=== PATIENT | female | born 2000 | race Caucasian/White ===

== ENCOUNTER → 2021-03-12 | Outpatient (REF) | payer OTHER ==
[~2021-03-12] MED LIST: IBUP80TA PO; PERCOCET PO; PRENTAB9 PO
== END ==
LOC: M SFHCWAGY 17:39
PROVIDERS: ATTEND Advanced Practice Midwife
DX: Z34.83 Encounter for supervision of other normal pregnancy, third trimester (principal); Z3A.36 36 weeks gestation of pregnancy
CPT/HCPCS: 87081; G0463

== ENCOUNTER 2021-03-25 11:31 | Inpatient (IN) | payer OTHER ==
[2021-03-25] VITALS (13 sets, daily range): BP systolic 118–165; BP diastolic 59–85
[~2021-03-25] VITALS: Ht 152.4 cm; Wt 70.1 kg
[2021-03-25] MEDS ORDERED: PRENTAB9 PO (11:49)
[2021-03-25] MEDS ORDERED: TRANEXAMIC ACID INJection 1,000 MG in NS 100 ML IV PRN (12:20)
[2021-03-25] MEDS ORDERED: CARBOPROST TROMETHAMINE 250 MCG/ML AMP IM PRN (12:20)
[2021-03-25] MEDS ORDERED: OXYTOCIN INJ 10 UNITS/ML VIAL (J2590) IM PRN (12:20)
[2021-03-25] MEDS ORDERED: LIDOCAINE 1% MDV 20ML VIAL INFIL PRN (12:20)
[2021-03-25] MEDS ORDERED: OXYTOCIN DRIP 30 UNITS in IV 1 EA IV PRN ×4 (12:20)
[2021-03-25 12:51] LABS: HEMATOCRIT 36.1 % (36.0-47.0); HEMOGLOBIN 12.2 g/dl (12.0-15.5); MEAN CORPUSCULAR HEMOGLOBIN 30.9 pg (27.0-33.0); MEAN CORPUSCULAR HGB CONC 33.8 g/dl (32.0-36.5); MEAN CORPUSCULAR VOLUME 91.4 fl (80.0-96.0); PLATELET COUNT, AUTOMATED 183 10^3/uL (150-450); RED BLOOD COUNT 3.95 10^6/uL (4.00-5.40); WHITE BLOOD COUNT 9.2 10^3/uL (4.0-10.0)
[2021-03-25] MEDS ORDERED: HOME MED LIST COMPLETE! XX SCH (12:55)
[2021-03-25 13:16] LABS: ALT/SGPT 16 U/L (12-78); BILIRUBIN,TOTAL 0.3 MG/DL (0.2-1.0); CREATININE FOR GFR 0.63 MG/DL (0.55-1.30); GLOMERULAR FILTRATION RATE > 60.0 (>60); LDH LACTATE DEHYDROGENASE 162 U/L (84-246); URIC ACID 4.8 MG/DL (2.6-6.0)
--- NOTE | 2021-03-25 13:38 | HPE ---
HISTORY AND PHYSICAL DATE OF ADMISSION: 03/25/2021 HISTORY OF PRESENT ILLNESS: Katrin is a 21-year-old 1 para 0 at 38 weeks gestation with an EDC of 04/08/2021 based on first trimester ultrasound. She presents to Labor and Delivery today with a report of spontaneous rupture of membranes approximately 10:00 a.m. She reports continued leakage of fluid. Fluid is clear. She denies bloody show. Reports some occasional cramping, and the fetus has been active. She does deny headache, visual disturbances, epigastric pain, and right upper quadrant discomfort. [place] with a transfer of care to [facility] at 29 weeks gestation. Her course has been uncomplicated. OBSTETRIC HISTORY: Primigravida. OBSTETRIC LABS: B positive. Antibody screen negative. VDRL negative. Hepatitis B surface antigen negative. Hepatitis C antibody negative. HIV negative. Gonorrhea and chlamydia negative. Rubella nonimmune. Urine culture no growth. There is no gestational diabetic for review. She does report she had the labs performed and reports that they are normal. However, there was no actual lab for review upon transfer. Her GBS is negative. PAST MEDICAL HISTORY: Asthma. FAMILY HISTORY: Noncontributory. PAST SURGICAL HISTORY: She had hand/finger surgery as well as wisdom tooth extraction. SOCIAL HISTORY: The patient is . She is a nonsmoker. She denies alcohol and drug use. No history of sexually transmitted infections, and she denies history of abuse, physical, sexual, and emotional. ALLERGIES: No known drug allergies. However, she does report an allergy to shellfish which causes a full body rash and itching. CURRENT MEDICATIONS: vitamin. PHYSICAL EXAMINATION: 99.6, pulse 83, respiration 18, blood pressure upon arrival elevated at 165/85, 140/81, and 162/77. She does appear anxious. heart rate is 150 with moderate variability, positive accelerations, negative decelerations. She is jarvis every 2 to 6 minutes. They do palpate mild. Her abdomen is gravid, cephalic presentation with an estimated weight of 6-1/2 to 7 pounds. Sterile speculum exam: Grossly ruptured, clear fluid, positive Nitrazine, positive fern. Sterile vaginal exam: 3-4 cm dilated, 80% effaced, -1 station, mid position. Normal show with the exam. ASSESSMENT: Intrauterine at 38 weeks gestation, heart rate category 1, premature rupture of membranes, latent labor, potential gestational hypertension and/or preeclampsia. PLAN: Admit the patient to Labor and Delivery, out of bed ad.[email or web address] m., saline lock for IV access, routine laboratories with the addition of a preeclamptic profile and a spot urine. I will await active labor. If no labor is initiated, then will induce with IV Pitocin. The patient is currently wanting to cope with her labor physiologically. She may consider an epidural. She has been verbally consented for emergency surgery and blood products if they are necessary. I do anticipate labor and a vaginal delivery.
[2021-03-25 14:17] LABS: CREATININE,RANDOM URINE 56.6 MG/DL; TOTAL PROTEIN,RANDOM URINE 13.9 MG/DL (0.0-12.0)
[2021-03-25] MEDS ORDERED: LR 1,000 ML IV SCH (16:15)
[2021-03-25] MEDS ORDERED: OXYTOCIN DRIP 30 UNITS in IV 1 EA IV SCH (16:15)
[2021-03-25] MEDS ORDERED: FENTANYL 2MCG/ML ROPIVACAINE 0.2% IN 0.9% NACL 100ML IVBAG As Ordered ONE (20:17)
[2021-03-25] MEDS ORDERED: ePHEDrine SULFATE 25 MG/5 ML(5MG/ML) SYRINGE IV PRN (20:55)
[2021-03-25] MEDS ORDERED: EPIDURAL COMMENT XX SCH (20:55)
[2021-03-25] MEDS ORDERED: LACTATED RINGER'S 1000 ML IV PRN (20:55)
[2021-03-25] MEDS ORDERED: REFRIGERATOR IV KEYS XX PRN (20:55)
[2021-03-25] MEDS ORDERED: NALOXONE INJ 0.4MG/1ML VIAL (J2310 PER 1MG) IV PRN (20:55)
[2021-03-25] MEDS ORDERED: EPIDURAL/PCA KEYS XX PRN (20:55)
[2021-03-25] MEDS ORDERED: ONDANSETRON 4MG/2ML VIAL IV PRN (20:55)
[2021-03-25] MEDS ORDERED: FENTANYL/ROPIVACAINE/NACL BAG 100 ML EPIDURAL SCH (20:55)
[2021-03-25] MEDS ORDERED: diphenhydrAMINE 50MG/ML VIAL (J1200) IV PRN (20:55)
[2021-03-26] VITALS (24 sets, daily range): BP systolic 112–146; BP diastolic 59–88
[2021-03-26] MEDS: LACTATED RINGER'S 1000 ML IV STA (06:05)
[2021-03-26] MEDS ORDERED: BICITRA 30ML SOLN UDC PO ONE (06:05)
[2021-03-26] MEDS ORDERED: ceFAZolin SOD 2 GM in IV 1 EA IV ONE (06:05)
[2021-03-26] MEDS ORDERED: ceFAZolin SOD 3 GM IV Place Holder IV ONE (06:05)
[2021-03-26] MEDS ORDERED: OXYTOCIN 30 UNITS IN 0.9% NaCl 500ML IV BAG (J2590) As Ordered ONE (06:56)
[2021-03-26] MEDS ORDERED: KETOROLAC 60MG 2ML VIAL As Ordered ONE (06:56)
[2021-03-26] MEDS ORDERED: MORPHINE PRES-FREE INJ 10 MG/10 ML VIAL (J2274) As Ordered ONE (06:56)
[2021-03-26] MEDS ORDERED: fentaNYL 100 MCG/2 ML INJECTION (J3010) As Ordered ONE (06:56)
[2021-03-26] MEDS ORDERED: ONDANSETRON 4MG/2ML VIAL As Ordered ONE (06:56)
[2021-03-26] MEDS ORDERED: MIDAZOLAM INJ 2MG/2ML VIAL (J2250 PER 1MG) As Ordered ONE (06:56)
[2021-03-26] MEDS ORDERED: SODIUM BICARBONATE 8.4% INJ 50MEQ 50 ML VIAL As Ordered ONE (06:56)
[2021-03-26] MEDS ORDERED: LIDOCAINE 2% W/EPINEPHRINE 20ML VIAL **PRES FREE As Ordered ONE (06:56)
[2021-03-26] MEDS ORDERED: propofoL 200 MG/20 ML VIAL As Ordered ONE (06:56)
[2021-03-26] MEDS ORDERED: dexameTHASONE 4 MG/ML 1ML VIAL (J1100 PER 1MG) As Ordered ONE (06:56)
[2021-03-26] MEDS ORDERED: SUCCINYLCHOLINE 100 MG/5 ML SYRINGE (J0330) As Ordered ONE (06:59)
[2021-03-26 07:07] LABS: CORD GAS ABE A -5.4; CORD GAS ABE V -6.9; CORD GAS HCO3 A 20.7 MEQ/L; CORD GAS HCO3 V 19.7 MEQ/L; CORD GAS O2 SAT A 85.4 %; CORD GAS O2 SAT V 79.3 %; CORD GAS PCO2 A 42.1 mmHg; CORD GAS PH A 7.309 UNITS; CORD GAS PH V 7.278 UNITS; CORD GAS PO2 A 43.8 mmHg; CORD GAS PO2 V 39.2 mmHg; CORD GAS SBC A 19.8 MEQ/L; CORD GAS SBC V 18.5 MEQ/L
[2021-03-26] MEDS ORDERED: ACETAMINOPHEN 1000MG 100ML IV BTL (OFIRMEV) (J0131 PER 10MG) As Ordered ONE (07:24)
[2021-03-26] MEDS ORDERED: RHOGAM 300 MCG (1500 IU) INJ (J2790) IM SCH (07:25)
[2021-03-26] MEDS ORDERED: ONDANSETRON 4MG/2ML VIAL IV PRN ×2 (07:25→07:50)
[2021-03-26] MEDS ORDERED: SIMETHICONE 80MG CHEW TAB PO PRN (07:25)
[2021-03-26] MEDS ORDERED: MEASLES,MUMPS,RUBELLA VACCINE INJ (MMR-II) (90707) SC SCH (07:25)
[2021-03-26] MEDS ORDERED: PERCOCET 5MG/325MG TAB PO PRN ×2 (07:25)
[2021-03-26] MEDS ORDERED: LR 1,000 ML IV SCH (07:25)
[2021-03-26] MEDS ORDERED: OXYTOCIN DRIP 30 UNITS in IV 1 EA IV SCH (07:25)
--- NOTE | 2021-03-26 07:31 | ROOPDOC ---
[facility] Report Of Operation Report of Operation DATE OF PROCEDURE: 03/26/21 Report of operation Preoperative diagnosis:38 weeks labor, arrest of descent Postoperative diagnosis:same Procedure: Primary low transverse section. Surgeon: Ирниа Holcomb M.D. Asst.: Blake Andrew CNM EBL: 500 ml. Urine output: 100 mL's. Findings: 6 lbs. 0 oz. female , 's 9 and 9 g, occiput posterior, normal uterus, fallopian tubes, ovaries. Operative summary: Patient taken to the operative room where spinal anesthesia induced. She was prepped and draped in a sterile fashion in the supine position. A Lorenzo catheter was placed. A Pfannenstiel skin incision was made with scalpel. Fascia was incised and extended bilaterally. The peritoneal cavity was entered. A Mobius retractor was placed. A bladder flap was created. A curvilinear incision was made in lower uterine segment until Clear fluid was noted. The incision was extended manually. The was delivered from the vertex pos ition without difficulty. Cord was doubly clamped and cut. The was handed to the awaiting nurses. The placenta was expressed. Uterus was closed with O- Vicryl in a running locked fashion. A second imbricating layer of Vicryl was placed. Peritoneum was closed with 2-0 Vicryl a running fashion. Fascia was closed with 0 Vicryl in running fashion. Skin was closed 4-0 Monocryl subcuticular sutures. Sponge, instrument and needle counts were correct. Blake Andrew CNM, assisted with all aspects of the procedure. She helped each layer of the incision and deliver the fetus. ИРИНА HOLCOMB MD Mar 26, 2021 07:31
[2021-03-26] MEDS ORDERED: oxyCODONE 5MG TAB PO PRN (07:50)
[2021-03-26] MEDS ORDERED: fentaNYL 100 MCG/2 ML INJECTION (J3010) IV PRN (07:50)
[2021-03-26] MEDS: PRENATAL VITAMINS CHEWABLE TABLET PO SCH (09:00)
[2021-03-26] MEDS: KETOROLAC 30 MG/ML 1ML VIAL IV SCH ×2 (13:00→18:25)
[2021-03-26] MEDS ORDERED: LR 500 ML IV ONE (21:00)
[2021-03-27] MEDS: KETOROLAC 30 MG/ML 1ML VIAL IV SCH (01:18)
[2021-03-27 02:00] VITALS: BP 138/93
[2021-03-27 06:00] VITALS: BP 124/60
--- NOTE | 2021-03-27 06:07 | IPNPDOC ---
Progress Note Date of Service: Mar 27, 2021 Progress Note SUBJECT: Status post PLTCS for arrest of descent. She has been ambulating, voiding spontaneously without issue and tolerating regular diet. Lochia decreasing/minimal. Pain is well-controlled. Incision bandage is clean/unsaturated. Denies headache, visual changes, right upper quadrant pain, shortness of breath or chest pain. OBJECTIVE: VITAL SIGNS: Within normal limits, afebrile. Alert and oriented times three. Abdomen: Fundus firm at U-2. Soft, NTTP. Incision bandage not soaked through ASSESSMENT: Status post uncomplicated LTCS. Vitals within normal limits, afebrile, hemodynamically stable with no evidence of infection. PLAN: Discharge to home tomorrow Routine /postoperative advancement Postoperative instructions/precautions reviewed. Routine PP visit at 2 and 6 weeks in clinic. VS, I&O, 24H, Fishbone Vital Signs/I&O Vital Signs Date Time Temp Pulse Resp B/P (MAP) Pulse Ox O2 Delivery O2 Flow Rate FiO2 03/27/21 02:00 97.9 98 16 138/93 (108) 98 Room Air I&O- Last 24 Hours up to 6 AM 03/27/21 06:00 Intake Total 3400 ml Output Total 1150 ml Balance 2250 ml Laboratory Data 24H LABS Laboratory Tests 2 03/26/21 06:45: Cord Arterial Blood pH 7.309, Cord Arterial Blood PCO2 42.1, Cord Arterial Blood PO2 43.8, Cord Arterial Blood HCO3 20.7, Cord Arterial Blood Total CO2 22.0, Cord Arterial Blood Base Excess -5.4, Cord Arterial Base Excess (Standard 19.8, Cord Arterial Bld Oxygen Saturation 85.4, Cord Venous Blood pH 7.278, Cord Venous Blood PCO2 43.0, Cord Venous Blood PO2 39.2, Cord Venous Blood HCO3 19.7, Cord Venous Blood Total CO2 21.0, Cord Venous Base Excess (Actual) -6.9, Cord Ve nous Base Excess (Standard) 18.5, Cord Venous Blood Oxygen Saturation 79.3 MABEL LYNN DO Mar 27, 2021 06:07
[2021-03-27 08:14] LABS: HEMATOCRIT 27.3 % (36.0-47.0); MEAN CORPUSCULAR HGB CONC 33.3 g/dl (32.0-36.5); MEAN CORPUSCULAR VOLUME 92.9 fl (80.0-96.0); PLATELET COUNT, AUTOMATED 125 10^3/uL (150-450); RED BLOOD COUNT 2.94 10^6/uL (4.00-5.40); WHITE BLOOD COUNT 12.8 10^3/uL (4.0-10.0)
[2021-03-27 08:20] LABS: HEMOGLOBIN 9.1 g/dl (12.0-15.5)
[2021-03-27] MEDS: PRENATAL VITAMINS CHEWABLE TABLET PO SCH (09:02)
[2021-03-27] MEDS: IBUPROFEN 800 MG TAB PO SCH ×2 (09:02→17:25)
[2021-03-27 14:00] VITALS: BP 119/66
[2021-03-27 18:00] VITALS: BP 112/74
[2021-03-27 22:00] VITALS: BP 136/95
[2021-03-27] MEDS ORDERED: DOCUSATE SODIUM 100MG CAPSULE PO PRN (22:55)
[2021-03-27] MEDS ORDERED: MOM 30ML SUSPENSION UDC PO PRN (22:55)
[2021-03-28 02:00] VITALS: BP 139/75
[2021-03-28 06:13] VITALS: BP 159/98
[2021-03-28 06:25] VITALS: BP 140/84
--- NOTE | 2021-03-28 08:12 | IPNPDOC ---
Text Note Date of Service The patient was seen on 03/28/21. NOTE PO #2 Feels well. Weepy "can't feed my baby" Voiding, passing flatus VSS, afebrile, normoensive Breasts soft Fundus firm NT Dressing intact Lochia rubra light without odor PO #2 Reviewed pt decision to breast feed vs formula is hers, She can choose to do ei ther if she wishes If , enc her to ask nurse for assist every feeding, to put baby to breast first before giving bottle. Routine care and support. Anticipate D/C in am VS,Fishbone, I+O VS, Fishbone, I+O Vital Signs Date Time Temp Pulse Resp B/P (MAP) Pulse Ox O2 Delivery O2 Flow Rate FiO2 03/28/21 06:25 140/84 (102) 03/28/21 06:13 98.1 75 14 100 Room Air Jocy Blood CNM Mar 28, 2021 08:12
[2021-03-28] MEDS: LACTATED RINGER'S 1000 ML IV STA (09:08)
[2021-03-28] MEDS: PRENATAL VITAMINS CHEWABLE TABLET PO SCH (09:09)
[2021-03-28] MEDS: IBUPROFEN 800 MG TAB PO SCH ×2 (09:09→17:36)
[2021-03-28] MEDS ORDERED: IBUP80TA PO (10:54)
[2021-03-28] MEDS ORDERED: PERCOCET PO (10:54)
--- NOTE | 2021-03-28 10:56 | DS.PDOC ---
Discharge Summary General Date of Admission Mar 25, 2021 at 12:15 Discharge Summary PROCEDURES PERFORMED DURING STAY: [None]. ADMITTING DIAGNOSES: 1. . DISCHARGE DIAGNOSES: 1. . COMPLICATIONS/CHIEF COMPLAINT: LABOR. HISTORY OF PRESENT ILLNESS: . HOSPITAL COURSE: . DISCHARGE MEDICATIONS: Please see below. ALLERGIES: Please see below. PHYSICAL EXAMINATION ON DISCHARGE: VITAL SIGNS: Please see below. GENERAL: HEENT: NECK: CARDIOVASCULAR EXAMINATION: RESPIRATORY EXAMINATION: ABDOMINAL EXAMINATION: EXTREMITIES: SKIN: NEUROLOGICAL EXAMINATION: PSYCHIATRIC EXAMINATION: LABORATORY DATA: Please see below. IMAGING: PROGNOSIS: ACTIVITY: [As tolerated]. DIET: DISCHARGE PLAN: DISPOSITION: . DISCHARGE INSTRUCTIONS: 1. . ITEMS TO FOLLOWUP ON ON OUTPATIENT: 1. . DISCHARGE CONDITION: [Stable]. TIME SPENT ON DISCHARGE: minutes. Vital Signs/I&Os Vital Signs Date Time Temp Pulse Resp B/P (MAP) Pulse Ox O2 Delivery O2 Flow Rate FiO2 03/28/21 06:25 140/84 (102) 03/28/21 06:13 98.1 75 14 100 Room Air Discharge Medications Scheduled Ibuprofen (Ibuprofen) 800 Mg Tablet, 800 MG PO Q8H No.137/Iron/Folic Acd ( Vitamin Tablet) 1 Each Tablet, 1 TAB PO DAILY, (Reported) Scheduled PRN Oxycodone/Acetaminophen (Oxycodone-Acetaminophen 5-325) 1 Each Tablet, 1 TAB PO Q4H PRN for MODERATE PAIN (PS 5-7) Allergies Coded Allergies: shellfish derived (Verified Allergy, Mild, rash, 03/25/21) ELSY JEFFERY MD. Mar 28, 2021 10:56
[2021-03-28 18:00] VITALS: BP 144/89
[2021-03-29] MEDS: IBUPROFEN 800 MG TAB PO SCH ×2 (00:34→08:47)
[2021-03-29 05:49] VITALS: BP 132/82
[2021-03-29] MEDS: PRENATAL VITAMINS CHEWABLE TABLET PO SCH (08:47)
== END 2021-03-29 12:10 | disposition home or self-care (01) | DRG 773 ==
LOC: M LDO 11:31 → M LDI 12:15 → M OBS 03-26 08:58
PROVIDERS: ADMIT Advanced Practice Midwife; ATTEND Specialist
PROC: 10D00Z1 Extraction of Products of Conception, Low, Open Approach (ICD-10-PCS; principal; 2021-03-26 07:37)
DX: O42.02 Full-term premature rupture of membranes, onset of labor within 24 hours of rupture (principal); Z3A.38 38 weeks gestation of pregnancy; O64.0XX0 Obstructed labor due to incomplete rotation of fetal head, not applicable or unspecified; Z37.0 Single live birth

== ENCOUNTER → 2023-01-17 | Outpatient (REF) | payer OTHER | LOC: M SFHCWAGY 16:53 | PROVIDERS: ATTEND Nurse Practitioner Family | DX: N73.9 Female pelvic inflammatory disease, unspecified (principal) | CPT/HCPCS: 87491; 87591; 87661; 87798; G0123; G0463 ==

== ENCOUNTER → 2023-02-08 | Outpatient (CLI) | payer OTHER ==
[2023-02-08 14:46] LABS: HCG, SERUM QUALITATIVE NEGATIVE (NEGATIVE)
[2023-02-08 14:49] LABS: FREE T4 1.06 NG/DL (0.89-1.76)
[2023-02-08 14:50] LABS: PROLACTIN 5.03 NG/ML; THYROID STIMULATING HORMONE 2.408 uIU/ML (0.55-4.78)
[2023-02-08 15:35] LABS: HEMOGLOBIN A1c 4.8 % (4.0-6.0)
[2023-02-11 04:10] LABS: 17 HYDROXY PROGESTERONE 18 ng/dL (.); TESTOSTERONE FREE (DIRECT) 4.1 pg/mL (0.0-4.2)
== END ==
LOC: M PLALAB 10:23
PROVIDERS: ATTEND Nurse Practitioner Family
DX: N91.2 Amenorrhea, unspecified (principal); Z12.4 Encounter for screening for malignant neoplasm of cervix; N76.0 Acute vaginitis; Z77.9 Other contact with and (suspected) exposures hazardous to health; R87.615 Unsatisfactory cytologic smear of cervix
CPT/HCPCS: 36415; 82627; 83036; 83498; 84146; 84402; 84403; 84439; 84443; 84703; 87070; G0123; G0463

== ENCOUNTER → 2023-02-16 | Outpatient (CLI) | payer OTHER | LOC: M WHC 07:36 | PROVIDERS: ATTEND Nurse Practitioner Family | DX: N91.2 Amenorrhea, unspecified (principal) ==

== ENCOUNTER → 2023-03-24 | Outpatient (REF) | payer OTHER ==
[2023-03-24 10:49] LABS: ALBUMIN 3.7 G/DL (3.2-5.2); ALKALINE PHOSPHATASE 61 U/L (46-116); ALT/SGPT 22 U/L (7.0-40); AST/SGOT 13 U/L (<34); BILIRUBIN,TOTAL 0.5 MG/DL (0.3-1.2); BLOOD UREA NITROGEN 14 MG/DL (9-23); CALCIUM LEVEL 9.5 MG/DL (8.5-10.1); CARBON DIOXIDE LEVEL 28 MMOL/L (20-31); CHLORIDE LEVEL 106 MMOL/L (98-107); CREATININE FOR GFR 0.72 MG/DL (0.55-1.30); GLOMERULAR FILTRATION RATE > 60.0 (>60); GLUCOSE, FASTING 80 MG/DL (60-100); POTASSIUM SERUM 4.3 MMOL/L (3.5-5.1); SODIUM LEVEL 139 MMOL/L (136-145); TOTAL PROTEIN 7.3 G/DL (5.7-8.2)
[2023-03-24 10:50] LABS: ESTRADIOL 61.9 PG/ML; HCG, SERUM QUALITATIVE NEGATIVE (NEGATIVE)
[2023-03-24 10:51] LABS: FOLLICLE STIMULATING HORMONE 10.9 mIU/ML; LUTEINIZING HORMONE 10.9 mIU/ML; PROGESTERONE 0.49 NG/ML
== END ==
LOC: M SFHCWAGY 09:51
PROVIDERS: ATTEND Nurse Practitioner Family
DX: N91.2 Amenorrhea, unspecified (principal)
CPT/HCPCS: 80053; 82670; 83001; 83002; 84144; 84703; G0463

== ENCOUNTER 2024-02-09 17:29 | Emergency (ER) | payer OTHER ==
[~2024-02-09] VITALS: Ht 157.5 cm; Wt 67.8 kg
[2024-02-09] MEDS ORDERED: MILI1TAB (17:36)
[2024-02-09] MEDS ORDERED: NAPR-837 PO (19:51)
[2024-02-09] MEDS ORDERED: CYCL-707 PO (19:51)
[2024-02-09 20:00] VITALS: BP 132/75; TEMP 97.7; O2SAT 100
== END 2024-02-09 20:01 | disposition home or self-care (01) ==
LOC: M ED 17:29
DX: S29.012A Strain of muscle and tendon of back wall of thorax, initial encounter (principal); X50.0XXA Overexertion from strenuous movement or load, initial encounter; Y92.9 Unspecified place or not applicable; Y93.9 Activity, unspecified; Y99.0 Civilian activity done for income or pay; Z91.013 Allergy to seafood

== ENCOUNTER 2024-06-19 23:11 | Emergency (ER) | payer OTHER ==
[~2024-06-19] VITALS: Ht 152.4 cm; Wt 69.1 kg
[~2024-06-19 23:11] MED LIST changes: +CYCL-707 PO; +MILI1TAB; +NAPR-837 PO
[2024-06-19 23:13] VITALS: TEMP 99
[2024-06-20 03:00] VITALS: BP 123/67; O2SAT 98
== END 2024-06-20 03:18 | disposition home or self-care (01) ==
LOC: M ED 23:11
DX: S93.401A Sprain of unspecified ligament of right ankle, initial encounter (principal); W10.9XXA Fall (on) (from) unspecified stairs and steps, initial encounter; Y92.009 Unspecified place in unspecified non-institutional (private) residence as the place of occurrence of the external cause; Y93.9 Activity, unspecified; Y99.9 Unspecified external cause status